=== PATIENT | male | born 1960 | race Caucasian/White ===

== ENCOUNTER → 2020-10-01 | Outpatient (CLI) | payer BC ==
[~2020-10-01] MED LIST: ASPI-630 PO; ATOR20TA58 PO; CARV6.25 PO; CYAN100T21 SQ; FISH1CAP PO; FLUT9.9S NS; MECO10005 SQ; MV-M1TAB7 PO; OLME20TA17 PO; OMEP20TA63 PO; ROPI2TAB6 PO
== END ==
LOC: LAB 12:54
PROVIDERS: ATTEND Nurse Anesthetist, Certified Registered
DX: Z01.812 Encounter for preprocedural laboratory examination (principal); K52.9 Noninfective gastroenteritis and colitis, unspecified; Z20.822 Contact with and (suspected) exposure to COVID-19
CPT/HCPCS: U0003

== ENCOUNTER → 2020-10-05 | Day surgery (SDC) | payer BC ==
[~2020-10-05] MED LIST changes: +IPRATRPIUM/ALBUTEROL 0.5/2.5MG 3 ML NEBU. NEB PRN; +IV RINGERS SOLUTION,LACTATED 1,000 ML IV SCH; +MIDAZOLAM HCL PF 2 MG/2 ML VIAL. IV ONE; +ONDANSETRON PF 4 MG/2 ML VIAL. IV PRN; +PROPOFOL 10,000 MCG/ML (20ML) VIAL IV ONE
[2020-10-05 09:21] VITALS: BP 120/58
== END | disposition home or self-care (01) ==
LOC: SURG 07:15
PROVIDERS: ATTEND Emergency Medicine
DX: K52.9 Noninfective gastroenteritis and colitis, unspecified (principal); Q43.8 Other specified congenital malformations of intestine; Z79.899 Other long term (current) drug therapy; Z79.82 Long term (current) use of aspirin
CPT/HCPCS: 45378; J2704; J7120